=== PATIENT | male | born 2005 | race Caucasian/White ===

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

== ENCOUNTER 2023-03-26 02:56 | Outpatient (CLI) | payer MEDICAID, SELFPAY ==
[2023-03-26 11:09] LABS: Hemoglobin A1C 5.9 % (<5.7)
[2023-03-26 11:18] LABS: ALT 50 U/L (16-63); AST 21 U/L (15-37); Alkaline Phosphatase 74 U/L (46-116); Anion Gap 10.7 mmol/L (3-11); BUN 15 mg/dL (7-18); Bilirubin, Total 0.6 mg/dL (0.2-1.0); CO2 28.3 mmol/L (21.0-32.0); CREATININE 0.9 mg/dL (0.70-1.30); Calcium 8.8 mg/dL (8.5-10.1); Calculated LDL 113 mg/dL (<100); Chloride 101 mmol/L (98-107); Cholesterol 181 mg/dL (<200); Estimated GFR 125.39 (mL/min/1.73m2); Glucose 118 mg/dL (74-106); HDL Cholesterol 40 mg/dL (40-60); Sodium 140 mmol/L (136-145); TSH (W/Ref FT4) 1.84 uIU/mL (0.36-3.74); Total Protein 8.2 g/dL (6.4-8.2); Triglyceride 142 mg/dL (<150)
[2023-03-30 11:00] LABS: IgA 225 mg/dL (85-499); Interpretation (See Note); Tissue Transglutaminase IgA <1.2 U/mL (<4.0)
== END 2023-03-26 02:57 | disposition home or self-care (01) ==
LOC: LBO 02:56
PROVIDERS: PCP Pediatrics; Visit Provider Pediatrics
DX: E78.5 Hyperlipidemia, unspecified (principal); F41.8 Other specified anxiety disorders; F90.8 Attention-deficit hyperactivity disorder, other type; K21.9 Gastro-esophageal reflux disease without esophagitis; R73.09 Other abnormal glucose; R11.0 Nausea; E66.8 Other obesity
CPT/HCPCS: 36415; 80053; 80061; 82784; 83516; 83036; 84443

== ENCOUNTER 2024-09-06 01:56 | Outpatient (CLI) | payer MEDICAID, SELFPAY ==
[2024-09-06 12:20] LABS: Hemoglobin A1C 5.4 % (<5.7)
[2024-09-06 12:56] LABS: ALT 33 U/L (16-63); AST 18 U/L (15-37); Albumin 4.2 g/dL (3.4-5.0); Alkaline Phosphatase 89 U/L (46-116); Anion Gap 10.2 mmol/L (3-11); BUN 15 mg/dL (7-18); Bilirubin, Total 0.45 mg/dL (0.2-1.0); CO2 27.8 mmol/L (21.0-32.0); Calcium 9.5 mg/dL (8.5-10.1); Calculated LDL 127 mg/dL (<100); Chloride 103 mmol/L (98-107); Cholesterol 193 mg/dL (<200); Estimated GFR 109.81 (mL/min/1.73m2); Glucose 106 mg/dL (74-106); HDL Cholesterol 47 mg/dL (40-60); Sodium 141 mmol/L (136-145); Total Protein 8.3 g/dL (6.4-8.2); Triglyceride 95 mg/dL (<150)
== END 2024-09-06 01:57 ==
LOC: LBO 01:56
PROVIDERS: PCP Family Medicine; Visit Provider Family Medicine
DX: Z13.6 Encounter for screening for cardiovascular disorders (principal); I10 Essential (primary) hypertension; R73.01 Impaired fasting glucose; R73.03 Prediabetes; Z00.00 Encounter for general adult medical examination without abnormal findings
CPT/HCPCS: 36415; 80053; 80061; 81003; 83036